=== PATIENT | female | born 1980 | race Caucasian/White ===

== ENCOUNTER 2016-12-08 03:18 | Emergency (ER) | payer OTHER ==
[~2016-12-08] VITALS: Ht 177.8 cm; Wt 86.0 kg
[2016-12-08 04:14] VITALS: BP 132/75
== END 2016-12-08 04:16 | disposition home or self-care (01) ==
LOC: EMS 03:21 → EEVIPCON 03:21 → EMS 04:16
DX: R21 Rash and other nonspecific skin eruption (principal)
CPT/HCPCS: 99283